=== PATIENT | female | born 1970 | race Caucasian/White ===

== ENCOUNTER 2018-05-05 16:31 | Outpatient (CLI) | payer OTHER ==
[2018-05-05 16:57] LABS: Hemoglobin 15.2 g/dL (12.0-16.0); Mean Corpuscular HGB CONC 34.9 g/dL (32.0-36.0); Mean Corpuscular Hemoglobin 33.2 pg (27.0-31.0); Mean Corpuscular Volume 95.1 fL (78.0-98.0); Mean Platelet Volume 7.9 fL (7.4-10.4); Platelet Count 279 thou/uL (130-400); RBC Distribution Width 12.1 % (11.5-14.5); Red Blood Cell (RBC) Count 4.58 mill/uL (4.20-5.40); White Blood Cell (WBC) Count 8.7 thou/uL (4.8-10.8)
[2018-05-05 17:04] LABS: INR-International Normal Ratio 0.9; PTT 26.4 SEC (22.9-36.1); Prothrombin Time 12.5 SEC (12.0-14.7)
[2018-05-05 17:15] LABS: Anion Gap 9 mmol/L (10-20); BUN (Urea Nitrogen) 14 mg/dL (7.0-18.7); Calc. Creatinine Clearance 0 mL/min (70-130); Calcium 9.6 mg/dL (7.8-10.44); Carbon Dioxide 31 mmol/L (22-29); Chloride 102 mmol/L (98-107); Estimated GFR-MDRD 68; Glucose 98 mg/dL (70-105); Potassium 3.4 mmol/L (3.5-5.1); Sodium 139 mmol/L (136-145)
--- NOTE | 2018-05-06 17:44 | EKG ---
Test Reason : Blood Pressure : / mmHG Vent. Rate : 086 BPM Atrial Rate : 086 BPM P-R Int : 128 ms QRS Dur : 098 ms QT Int : 364 ms P-R-T Axes : 067 082 036 degrees QTc Int : 435 ms Normal sinus rhythm Normal ECG No previous ECGs available Confirmed by DR. Gabbie CLEANING ([id number]) on 05/06/2018 5:43:49 PM Referred By: BRITTANY Confirmed By:DR. Gabbie CLEANING
== END 2018-05-05 16:32 | disposition home or self-care (01) ==
LOC: LABBT 16:31
PROVIDERS: ATTEND Surgery
DX: Z01.818 Encounter for other preprocedural examination (principal); M51.16 Intervertebral disc disorders with radiculopathy, lumbar region
CPT/HCPCS: 80048; 85027; 85610; 85730; 93005; 93010

== ENCOUNTER 2018-05-06 05:54 | Day surgery (SDC) | payer OTHER ==
[2018-05-05 16:43] VITALS: BMI 29.9
[2018-05-06] MEDS ORDERED: CEFAZOLIN/Water 2 GM/20 ML SYRINGE ONE (06:27)
[2018-05-06] MEDS ORDERED: Sodium Chloride 0.9% 10 ML ONE (06:41)
[2018-05-06] MEDS ORDERED: Bacitracin Zinc Ointment 30 gm TUBE ONE (06:41)
[2018-05-06] MEDS ORDERED: Thrombin 5000 UNITS/5 ML VIAL ONE (06:41)
[2018-05-06] MEDS ORDERED: Midazolam HCl 2 mg/2 ml Vial ONE (07:13)
[2018-05-06] MEDS ORDERED: Fentanyl 100 MCG/2 ML VIAL ONE ×3 (07:15→10:14)
[2018-05-06] MEDS ORDERED: traMADol HCl 50 MG TAB ONE (11:13)
--- NOTE | 2018-05-06 11:23 | OP ---
OR: #12. WOUND TYPE: Type 1 wound. SURGEON: Michael Bentley M.D. INTEGRATION PROJECT MANAGER: Dakotah Montoya PA-C. PREPROCEDURE DIAGNOSIS: Left L5-S1 disk extrusion with left S1 radiculopathy. POSTPROCEDURE DIAGNOSIS: Left L5-S1 disk extrusion with left S1 radiculopathy. PROCEDURE: 1. Left L5-S1 hemilaminotomy, foraminotomy, and diskectomy. 2. Use of operative microscope for microdissection. DESCRIPTION OF PROCEDURE: After informed consent was obtained from the patient, the patient brought to OR #12. Proper patient pause identification was carried out. She was placed in excellent general endotracheal anesthesia and positioned prone on the OR table. All appropriate points were padded. We identified a midline linear price to allow for approach to the L5-S1 segment on the left side. Thi s region was sterilely cleansed, prepared, and draped. Proper patient pause and identification was c arried out. The wound was then opened with a combination of sharp, monopolar and blunt dissection, a nd proceeded to expose L5, left S1 hemilamina. Localization film confirmed our area of interest. We then performed a left L5-S1 hemilaminotomy and foraminotomy. The microscope was brought in for micr odissection. We identified the common dural tube and the traversing left S1 nerve root. Working ove r the shoulder in the axilla of the left S1 root. We removed multiple disk fragments. There was nate e disk material as well and the parent disk space consistent with soft fragments and these were remov ed as well. We had excellent decompression of the left S1 nerve root and assured freedom as well of the left L5 nerve root. Copious irrigation occurred throughout as did maximizing hemostasis. The wo und was then closed in anatomic layers following sprinkle vancomycin powder. The patient then emerge d from anesthesia.
== END 2018-05-06 13:15 | disposition home or self-care (01) ==
LOC: SDC 05:54
PROVIDERS: ATTEND Surgery
PROC: 01NB0ZZ Release Lumbar Nerve, Open Approach (ICD-10-PCS; principal; 2018-05-06)
DX: M51.17 Intervertebral disc disorders with radiculopathy, lumbosacral region (principal); E07.9 Disorder of thyroid, unspecified; G43.909 Migraine, unspecified, not intractable, without status migrainosus; Z79.899 Other long term (current) drug therapy; Z88.2 Allergy status to sulfonamides
CPT/HCPCS: 76001; 96374; A4216; J0131; J2250; J3010; J3370; J3490

== ENCOUNTER 2018-05-20 15:42 | Emergency (ER) | payer OTHER ==
[2018-05-20 16:10] LABS: #Eosinphils 0.1 thou/uL (0.0-0.7); #Lymphocytes 0.7 thou/uL (1.20-3.40); #Monocytes 0.7 thou/uL (0.11-0.59); #Neutrophils 6.5 thou/uL (1.40-6.50); %Basophils 0.3 % (0.0-1.0); %Eosinophils 0.7 % (0.0-10.0); %Lymphocytes 8.3 % (21.0-51.0); %Monocytes 9.1 % (0.0-10.0); %Neutrophils 81.6 % (42.0-75.0); Mean Corpuscular HGB CONC 34.5 g/dL (32.0-36.0); Mean Corpuscular Hemoglobin 32.2 pg (27.0-31.0); Mean Corpuscular Volume 93.5 fL (78.0-98.0); Mean Platelet Volume 7.2 fL (7.4-10.4); Platelet Count 310 thou/uL (130-400); Red Blood Cell (RBC) Count 4.35 mill/uL (4.20-5.40)
[2018-05-20] MEDS ORDERED: Ibuprofen 800 MG TAB ONE (16:22)
[2018-05-20 16:30] LABS: ALT (SGPT) 106 U/L (8-55); AST (SGOT) 97 U/L (5-34); Albumin 3.3 g/dL (3.5-5.0); Alkaline Phosphatase 151 U/L (40-150); Anion Gap 11 mmol/L (10-20); BUN (Urea Nitrogen) 9 mg/dL (7.0-18.7); Bilirubin, Total 1.1 mg/dL (0.2-1.2); Calc. Creatinine Clearance 0 mL/min (70-130); Calcium 8.5 mg/dL (7.8-10.44); Carbon Dioxide 24 mmol/L (22-29); Chloride 102 mmol/L (98-107); Estimated GFR-MDRD 79; Globulin 3.4 g/dL (2.4-3.5); Glucose 122 mg/dL (70-105); Potassium 3.1 mmol/L (3.5-5.1); Protein, Total 6.7 g/dL (6.0-8.3); Sodium 134 mmol/L (136-145)
--- NOTE | 2018-05-20 16:44 | RAD ---
CHEST ONE VIEW: 05/20/18 HISTORY: Fever. COMPARISON: None. FINDINGS: Normal cardiac silhouette. Pulmonary vessels and hilum are normal. No consolidation or mass. No pneum othorax or osseous abnormalities. IMPRESSION: No acute cardiopulmonary process. POS: [facility]
[2018-05-20] MEDS ORDERED: Morphine 4 MG/ML VIAL ONE (17:41)
[2018-05-20] MEDS ORDERED: Ondansetron HCl/PF 4 MG/2 ML Vial ONE (17:41)
[2018-05-20 17:52] LABS: Bilirubin Negative (Negative); Blood, Urine Negative (Negative); Clarity CLEAR (Clear); Glucose, Urine (Dipstick) Negative (Negative); Leukocyte Negative (Negative); Nitrite Negative (Negative); Protein, Urine (Dipstick) Negative (Neg-Trace); Specific Gravity, Urine 1.007 (1.002-1.036); pH, Urine 7.5 (5.0-9.0)
== END 2018-05-20 18:34 | disposition home or self-care (01) ==
LOC: ERS 15:42
DX: R50.9 Fever, unspecified (principal); R00.0 Tachycardia, unspecified; Z79.899 Other long term (current) drug therapy
CPT/HCPCS: 71045; 80053; 81003; 83605; 85025; 87040; 87077; 87149; 87186; 96361; 96374; 96375; J2270; J2405

== ENCOUNTER 2018-05-26 20:16 | Inpatient (IN) | payer OTHER ==
[~2018-05-26 20:16] MED LIST: ISOVUE-370 76%-LOCM 1 ML ONE
[2018-05-26] MEDS ORDERED: Ibuprofen 800 MG TAB ONE (21:12)
[2018-05-26 21:15] LABS: #Basophils 0.1 thou/uL (0.0-0.2); #Eosinphils 0.1 thou/uL (0.0-0.7); #Lymphocytes 1.6 thou/uL (1.20-3.40); #Monocytes 0.7 thou/uL (0.11-0.59); #Neutrophils 9.7 thou/uL (1.40-6.50); %Basophils 0.5 % (0.0-1.0); %Eosinophils 0.7 % (0.0-10.0); %Lymphocytes 12.8 % (21.0-51.0); %Monocytes 5.6 % (0.0-10.0); %Neutrophils 80.3 % (42.0-75.0); Hemoglobin 15.4 g/dL (12.0-16.0); Mean Corpuscular Hemoglobin 30.4 pg (27.0-31.0); Mean Platelet Volume 6.8 fL (7.4-10.4); Platelet Count 491 thou/uL (130-400); RBC Distribution Width 12.3 % (11.5-14.5); Red Blood Cell (RBC) Count 5.07 mill/uL (4.20-5.40)
--- NOTE | 2018-05-26 21:23 | RAD ---
CHEST ONE VIEW: HISTORY: Bacteremia. COMPARISON: 05/20/2018 FINDINGS: Normal cardiac silhouette. The pulmonary vessels are within normal limits. The costophrenic angles are clear. No masses or consolidation. Chronic changes of the lung parenchyma. Subsegmental atelec tasis in the right mid lung. No pneumothorax or osseous abnormalities. IMPRESSION: Chronic changes in the lung parenchyma. No evidence of consolidation. POS: [facility]
[2018-05-26 21:37] LABS: ALT (SGPT) 245 U/L (8-55); AST (SGOT) 138 U/L (5-34); Albumin 4.1 g/dL (3.5-5.0); Alkaline Phosphatase 188 U/L (40-150); Anion Gap 13 mmol/L (10-20); BUN (Urea Nitrogen) 14 mg/dL (7.0-18.7); Bilirubin, Total 0.8 mg/dL (0.2-1.2); Calc. Creatinine Clearance 0 mL/min (70-130); Calcium 9.5 mg/dL (7.8-10.44); Carbon Dioxide 29 mmol/L (22-29); Chloride 100 mmol/L (98-107); Estimated GFR-MDRD 64; Globulin 4.8 g/dL (2.4-3.5); Glucose 100 mg/dL (70-105); Potassium 3.5 mmol/L (3.5-5.1); Protein, Total 8.9 g/dL (6.0-8.3); Sodium 138 mmol/L (136-145)
--- NOTE | 2018-05-26 22:23 | ULT ---
BILATERAL LOWER LOBES VENOUS DOPPLER DUPLEX ULTRASOUND: CPT: 46253 ICD-10-PCS: [id number] INDICATIONS: Pain. TECHNIQUE: Color flow Doppler, spectral waveform analysis of pulsed Doppler, and cruz-scale imaging with emilia lupe and augmentation were used to evaluate the bilateral common femoral, femoral, popliteal, posteri or tibial, and superficial femoral veins, and the proximal portions of the profunda femoral and great er saphenous veins. FINDINGS: There is appropriate compressibility and flow within the imaged deep venous system of each visualized lower extremity. IMPRESSION: No deep venous thrombosis of the imaged bilateral lower extremities. POS: [facility]
[2018-05-26 23:17] LABS: Bilirubin Negative (Negative); Blood, Urine Negative (Negative); Clarity CLEAR (Clear); Glucose, Urine (Dipstick) Negative (Negative); Leukocyte Negative (Negative); Nitrite Negative (Negative); Protein, Urine (Dipstick) Negative (Neg-Trace); pH, Urine 7.5 (5.0-9.0)
[2018-05-26] MEDS ORDERED: Morphine 4 MG/ML VIAL ONE (23:20)
[2018-05-26] MEDS ORDERED: Acetaminophen 325 MG TAB ONE (23:43)
[2018-05-26] MEDS ORDERED: Vancomycin HCl 1.25 GM in Sodium Chloride 0.9% 250 ML 250 ML IVPB SCH (23:45)
[2018-05-27] MEDS ORDERED: Acetaminophen 325 MG TAB PO PRN
--- NOTE | 2018-05-27 00:16 | CT ---
CT ABDOMEN AND PELVIS NONCONTRAST ENHANCED: CT ABDOMEN AND PELVIS CONTRAST ENHANCED: INDICATIONS: Prior spine surgery with fever. FINDINGS: There is an abnormal fluid and air collection of the posterior paraspinous soft tissues, consistent w ith abscess, which is located at the posteromedial aspect of the posterior left paraspinous musculatu re. It overlies the spinous process of L4 and is multi-component in morphology, spanning an AP dimen lupe of 2.8 cm and a craniocaudal, obliquely-oriented dimension of approximately 2.6 cm. There is no retroperitoneal gas of significance visualized. Prior cholecystectomy. Punctate hypoattenuation of the hepatic parenchyma and of left kidney, too sm all to further characterize. Borderline enlargement of the spleen, of indeterminate etiology. Corre late clinically. Bibasilar atelectasis, dependent. The contents of the vertebral canal are not reliably evaluated on the basis of this exam; therefore, entities such as intraspinal dissemination of infection are not excluded. IMPRESSION: Evidence of a fluid and air collection of the posterior paraspinous region, indicative of abscess, gi angie the clinical setting. Alternatively seroma, or hematoma are considerations. This is amenable to p ercutaneous sampling as necessary. Case discussed with Michael Bentley MD. POS: [facility]
[2018-05-27] MEDS: MEROPENEM 1 GM/50 ML 1 GM in Premix Bag 1 BAG IVPB SCH ×3 (01:18→18:18)
[2018-05-27] MEDS: Sodium Chloride 0.9% 1,000 ML IV SCH ×3 (01:18→22:35)
[2018-05-27 01:55] VITALS: BMI 30.9
[2018-05-27 05:37] LABS: #Eosinphils 0.1 thou/uL (0.0-0.7); #Lymphocytes 1.8 thou/uL (1.20-3.40); #Neutrophils 7.4 thou/uL (1.40-6.50); %Basophils 0.5 % (0.0-1.0); %Eosinophils 1.2 % (0.0-10.0); %Lymphocytes 17.4 % (21.0-51.0); %Monocytes 9.5 % (0.0-10.0); %Neutrophils 71.5 % (42.0-75.0); Hemoglobin 11.8 g/dL (12.0-16.0); Mean Corpuscular HGB CONC 33.5 g/dL (32.0-36.0); Mean Corpuscular Hemoglobin 31.5 pg (27.0-31.0); Mean Corpuscular Volume 93.8 fL (78.0-98.0); Mean Platelet Volume 6.7 fL (7.4-10.4); Platelet Count 370 thou/uL (130-400); RBC Distribution Width 12.1 % (11.5-14.5); Red Blood Cell (RBC) Count 3.76 mill/uL (4.20-5.40); White Blood Cell (WBC) Count 10.4 thou/uL (4.8-10.8)
[2018-05-27 05:47] LABS: Anion Gap 10 mmol/L (10-20); BUN (Urea Nitrogen) 12 mg/dL (7.0-18.7); Calc. Creatinine Clearance 113 mL/min (70-130); Calcium 8.5 mg/dL (7.8-10.44); Carbon Dioxide 23 mmol/L (22-29); Chloride 108 mmol/L (98-107); Estimated GFR-MDRD 75; Glucose 95 mg/dL (70-105); Potassium 3.8 mmol/L (3.5-5.1); Sodium 137 mmol/L (136-145)
[2018-05-27] MEDS ORDERED: Enoxaparin Sodium 40 MG/0.4 ML SYRINGE SC SCH (09:00)
[2018-05-27] MEDS ORDERED: Vancomycin HCl 1 GM in Premix Bag 1 BAG IVPB SCH (09:00)
[2018-05-27] MEDS ORDERED: Levothyroxine Sodium 125 MCG TAB PO SCH (09:00)
[2018-05-27] MEDS: Zonisamide 100 MG CAP PO SCH ×2 (09:05→20:51)
--- NOTE | 2018-05-27 09:45 | PRG ---
DATE OF SERVICE: 05/27/2018 SUBJECTIVE: Ms. Ambriz is 3 weeks out from left L5-S1 hemilaminotomy, foraminotomy, and diskectomy . Initially postoperative, her leg pain was resolved following the diskectomy. The procedure was un complicated. She went home the same day. Approximately a week out from surgery, she began to become febrile. Her arlette were removed and she developed superficial dehiscence of her wound. This bega n to improve; however, the patient began to have despite placement of prophylactic antibiotics, fluct uating fevers. Blood cultures captured two separate growths of Proteus mirabilis. This was confirme d on 05/25/2018. We informed the patient that we would like her to go to the emergency room, which she did yesterday. White count was elevated at 12 and it is now down to 10.4 since initiation of antibiotics. Her acute phase reactant consistent with thrombocytosis with elevated platelet coun t is resolved to 370. CRP is elevated as well as sed rate at 9.39 and 33 respectively. The urine is clear for evidence of infection. I did ask her to do CT scan of the abdomen and pelvis, and the pat ient does have splenomegaly. There is a seroma versus abscess in the operative bed. I discussed the case with Dr. Guerrero who offered a needle aspiration of the small abscess, but I have discussed wit h the patient and her that I would be in favor of bring her back to the operating room for ex ploration of her wound and subsequent cultures. We will continue her on antibiotics. I should note she has elevated LFTs and alkaline phosphatase that coupled with the splenomegaly is a bit puzzling t o me, but I think our medical colleagues will be able to put this together. I should note she has a mixed connective tissue disease as well, which may be affecting the immune system. Nevertheless, we are going to plan to bring her back today. Continue her on antibiotics and Dr. Mckenzie will assist in regards to plans for antimicrobial therapy in the future.
--- NOTE | 2018-05-27 09:58 | HP ---
DATE OF ADMISSION: 05/26/2018 PRIMARY CARE PHYSICIAN: Dr. Kendrick Burton. CODE STATUS: FULL CODE. TIME OF EVALUATION: 11:00 p.m. CHIEF COMPLAINT: Patient was recovered from abnormal blood cultures. HISTORY OF PRESENT ILLNESS: This is a 48-year-old female patient with past medical history of recent lumbar laminectomy done and hypothyroidism, was called by Dr. Bentley, this is patient's neurosurgeon , because there was a finding of two positive blood cultures for Proteus. The patient had a laminect gustavo done in 05/06/2018, has been doing well for a few days. After that, the patient started having f cathryn and severe back pain with severe weakness in the left lower extremity, the symptoms gradually g etting worse, not improving, patient had fever, chills, and nausea. REVIEW OF SYSTEMS: Constitutional: Patient had fever, chills, generalized weakness. Respiratory: No cough, sputum production, shortness of breath. Cardiovascular: No chest pain, palpitation. Kimberly rointestinal: No nausea, no vomiting, diarrhea or abdominal pain. 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 Genitourinary: No burning on urination. Extremities: No leg swelling. All other systems were reviewed and are negative except for the find ings mentioned above. PAST MEDICAL HISTORY: As mentioned in the HPI. PAST SURGICAL HISTORY: Patient has laminectomy on 05/06/2018 in the lumbar area, tubal ligation, his tory of cholecystectomy, right bunionectomy. PSYCHIATRIC HISTORY: No previous psychiatric history. SOCIAL HISTORY: No alcohol, no drugs, or smoking history. FAMILY HISTORY: Patient reportedly mother with heart problem, Alzheimer's. Father with heart proble ms, lung cancer. DRUG ALLERGIES: SULFA. REPORTED MEDICATIONS: Synthroid, Sinemet, Keflex. PHYSICAL EXAMINATION: VITAL SIGNS: On presentation, blood pressure 133/86, heart rate 82, respiratory rate was 16, tempera ture 100.3, pain was 8, oxygen saturation was 97 on room air. GENERAL APPEARANCE: The patient is alert and oriented, in acute distress due to lower back pain. HEENT: Eye, normal conjunctivae. Moist oral mucosa, anicteric. NECK: No JVD. RESPIRATORY: Bilateral air entry. No rales, no wheezing. Symmetric expansion. CARDIOVASCULAR: Normal rate and regular rhythm. No murmurs, no gallop. No edema. ABDOMEN: Soft, normal bowel sounds. MUSCULOSKELETAL: Baseline range of motion and strength. No tenderness. SKIN: Warm and intact. No pallor, no rash, no redness. Peripheral pulses are present. Capillary r efill seems to be intact. NEUROLOGIC: Baseline sensory. No evidence of any new focal weakness. The patient does have weaknes s in the lower extremities. She reported she surgery. Also, patient reported pain when mobili zing the lower extremities, patient has baseline speech. Cranial nerves seem to be intact. PSYCHIATRIC: The patient is in good mood. No anxiety, oriented, optimal judgment. IMAGING DATA: Abdomen and pelvis CT showed evidence of fluid and air collection in the posterior par aspinous region compatible with abscess. Given the clinical setting, this is amenable to percutaneou s sampling as necessary. Chest x-ray was reviewed. The patient has chronic changes in the lung pare nchyma. No evidence of consolidation. Venogram was done. The patient has no deep venous thrombosis pf the imaged bilateral lower extremities. LABORATORY DATA: Reviewed. The patient has white count 12, hemoglobin 15.4, MCV 95, platelet count 491. Sodium 138, potassium 3.5, chloride 100, carbon dioxide 29, anion gap 13, BUN 14, creatinine 0. 9, GFR is 64, glucose 100. Lactic acid 1.3, calcium 9.5, total bilirubin 0.8, AST 138, ALT of 245, a lkaline phosphatase 188. C-reactive protein 9.39. Serum total protein 8.9, albumin 4.1, globulin 4. 8, albumin globulin ratio 0.9. UA was negative. ASSESSMENT AND PLAN: The patient will be placed in the hospital with following medical problems: 1. Sepsis. Patient has tachycardia, fever, source is lumbar paraspinous region abscess, secondary t o previous surgery or infection. Patient was placed on broad-spectrum antibiotics, is transfe rred the patient to the hospital. He will see the patient in the morning, further treatment as per N eurosurgery. We will follow cultures. Adjust treatment as needed. 2. Paraspinal abscess, treatment as above. 3. Hypothyroidism. Continue hormone replacement. 4. Deep venous thrombosis prophylaxis. RISK ASSESSMENT: Patient is at high risk of complication given neurological symptoms.
[2018-05-27] MEDS: Vancomycin HCl 1.25 GM in Sodium Chloride 0.9% 250 ML 250 ML IVPB SCH ×2 (10:05→20:51)
--- NOTE | 2018-05-27 11:26 | PDOC.PN ---
- Subjective Encounter Start Date: 05/27/18 Encounter Start Time: 09:45 Subjective: has pain over lower back -: no sob or fever now - Objective Resuscitation Status: Resuscitation Status FULL:Full Resuscitation MAR Reviewed: Yes Vital Signs & Weight: Vital Signs (12 hours) Temp Pulse Resp BP Pulse Ox 05/27/18 08:59 95 05/27/18 07:19 97.6 F 73 16 113/76 95 05/27/18 04:00 98.0 F 78 18 113/76 97 05/26/18 23:55 99.6 F 97 18 128/81 95 Weight Weight 186 lb 3.2 oz I&O: 05/26/18 05/27/18 05/28/18 06:59 06:59 06:59 Intake Total 600 Output Total 1100 Balance -500 Result Diagrams: 05/27/18 04:33 05/27/18 04:33 Phys Exam - Physical Examination HEENT: PERRLA, moist MMs Neck: no JVD, supple Respiratory: no wheezing, no rales Cardiovascular: RRR, no significant murmur Gastrointestinal: soft, non-tender, positive bowel sounds Musculoskeletal: pulses present non healing wound over previous laminectomy site Neurological: non-focal, moves all 4 limbs Psychiatric: normal affect, A&O x 3 Dx/Plan (1) Epidural abscess Code(s): G06.2 - EXTRADURAL AND SUBDURAL ABSCESS, UNSPECIFIED Status: Acute Comment: L4 area (2) Sepsis Code(s): A41.9 - SEPSIS, UNSPECIFIED ORGANISM Status: Acute Comment: sec to proteus mirabilis (3) Bacteremia Code(s): R78.81 - BACTEREMIA Status: Acute Comment: proteus mirabilis (4) Elevated LFTs Code(s): R94.5 - ABNORMAL RESULTS OF LIVER FUNCTION STUDIES Status: Acute (5) Chronic anemia Code(s): D64.9 - ANEMIA, UNSPECIFIED Status: Chronic - Plan elevated lft's sec to sepis likely -: will f/u trend -: is on vanc and meropenem -: is going to OR for debridement this afternoon -: blood cs here 2/2 prelim no growth * . Review of Systems - Medications/Allergies Allergies/Adverse Reactions: Allergies Allergy/AdvReac Type Severity Reaction Status Date / Time Sulfa (Sulfonamide Allergy Verified 05/05/18 16:43 Antibiotics) Medications: Current Medications Acetaminophen (Tylenol) 650 mg PO Q4H PRN PRN Reason: Headache/Fever or Pain Meropenem 1 gm/ Device 50 mls @ 100 mls/hr IVPB 0100,0900,1700 [facility] Last Admin: 05/27/18 09:04 Dose: 50 mls Sodium Chloride (Normal Saline 0.9%) 1,000 mls @ 100 mls/hr IV .Q10H [facility] Last Admin: 05/27/18 01:18 Dose: 1,000 mls Vancomycin HCl 1.25 gm/ Sodium (Chloride) 250 mls @ 166.667 mls/hr IVPB Q12HR [facility] Last Admin: 05/27/18 10:05 Dose: 250 mls Levothyroxine Sodium (Synthroid) 125 mcg PO QAM [facility] Last Admin: 05/27/18 09:05 Dose: 125 mcg Pantoprazole Sodium (Protonix) 40 mg PO DAILY [facility] Last Admin: 05/27/18 09:05 Dose: 40 mg Sodium Chloride (Flush - Normal Saline) 10 ml IVF Q12HR [facility] Last Admin: 05/27/18 09:08 Dose: Not Given Sodium Chloride (Flush - Normal Saline) 10 ml IVF PRN PRN PRN Reason: Saline Flush Zonisamide (Zonegran) 100 mg PO BID [facility] Last Admin: 05/27/18 09:05 Dose: 100 mg
[2018-05-27] MEDS ORDERED: Thrombin 5000 UNITS/5 ML VIAL ONE (13:05)
[2018-05-27] MEDS ORDERED: Sodium Chloride 0.9% 10 ML ONE ×2 (13:05→13:15)
[2018-05-27] MEDS ORDERED: Bacitracin Zinc Ointment 30 gm TUBE ONE (13:05)
[2018-05-27] MEDS ORDERED: Dexamethasone 20 MG/5 ML VIAL ONE (13:12)
[2018-05-27] MEDS ORDERED: Ondansetron HCl/PF 4 MG/2 ML Vial ONE (13:12)
[2018-05-27] MEDS ORDERED: PROPOFOL 200 MG/20 ML VIAL ONE (13:12)
[2018-05-27] MEDS ORDERED: PHENYLEPHRINE-NS 100 MCG/ML 10 ML SYRINGE ONE (13:12)
[2018-05-27] MEDS ORDERED: Glycopyrrolate 0.2 MG/ML 5 ML SYRINGE ONE (13:12)
[2018-05-27] MEDS ORDERED: Metoclopramide HCl 10 MG/2 ML VIAL ONE (13:12)
[2018-05-27] MEDS ORDERED: Ketorolac Tromethamine 30 MG/ML VIAL ONE (13:12)
[2018-05-27] MEDS ORDERED: Lidocaine 1% PF 5 ML VIAL ONE (13:12)
[2018-05-27] MEDS ORDERED: Promethazine HCl 25 MG/ML VIAL ONE (13:14)
[2018-05-27] MEDS ORDERED: Propofol 500 MG/50 ML VIAL ONE (13:14)
[2018-05-27] MEDS ORDERED: Fentanyl 100 MCG/2 ML VIAL ONE ×3 (13:24→15:59)
[2018-05-27] MEDS ORDERED: Morphine Sulfate 2 MG/ML SYRINGE SLOW IVP PRN (14:46)
[2018-05-27] MEDS ORDERED: Ondansetron HCl/PF 4 MG/2 ML Vial IVP PRN (14:46)
[2018-05-27] MEDS ORDERED: Meperidine HCl/PF 25 MG/ML VIAL SLOW IVP PRN (14:46)
[2018-05-27] MEDS ORDERED: HYDROmorphone 2 MG/ML VIAL SLOW IVP PRN (14:46)
[2018-05-27] MEDS ORDERED: Promethazine HCl 25 MG/ML VIAL SLOW IVP PRN (14:46)
[2018-05-27] MEDS ORDERED: Promethazine HCl 25 MG/ML VIAL IM PRN (14:46)
[2018-05-27] MEDS ORDERED: traMADol HCl 50 MG TAB PO PRN (15:33)
[2018-05-27] MEDS ORDERED: Ondansetron HCl/PF 4 MG/2 ML Vial SLOW IVP PRN (16:48)
[2018-05-27] MEDS: HYDROcodone/Acetaminophen 5/325 mg Tablet PO PRN ×2 (18:27→22:34)
--- NOTE | 2018-05-27 18:50 | OP ---
OPERATING ROOM: 11. WOUND TYPE: Type 4 wound, dirty and infected. SURGEON: Michael Bentley M.D. MANAGER STARS: Dakotah Montoya PA-C. PREPROCEDURE DIAGNOSIS: Concern of postoperative infection. POSTPROCEDURE DIAGNOSIS: Concern of postoperative infection. PROCEDURE: Reopening of left L5-S1 hemilaminotomy diskectomy wound with exploration, intraoperative cultures and wash out. DESCRIPTION OF PROCEDURE: After informed consent was obtained from the patient, the patient brought to OR 11. Proper patient pause identification was carried out. She was placed in excellent general endotracheal anesthesia and positioned prone on the OR table. The prior wound was identified. There were regions of fibrinous exudate and erythema around the wound. The portions of the wound were stephen sed. There was no active drainage. The wound region was sterilely cleansed, prepared and draped and proper patient pause identification was carried out. The wound was then opened with sharp dissectio n and liquified hematoma was immediately available for evacuation and culture. This was and I then took the dissection deeper into the subfascial region and did not identify any evidence of purul ence neither superficial nor deep. Copious irrigation occurred with 2 liters of bacitracin irrigatio n and the wound was then closed in anatomic layers following the sprinkling of vancomycin powder. Th e patient then emerged from anesthesia.
[2018-05-27] MEDS: Morphine 2 MG/ML SYRINGE SLOW IVP PRN (20:45)
[2018-05-27] MEDS: tiZANidine HCl 4 MG TAB PO SCH (20:51)
[2018-05-28] MEDS: MEROPENEM 1 GM/50 ML 1 GM in Premix Bag 1 BAG IVPB SCH ×3 (00:10→17:12)
[2018-05-28] MEDS: HYDROcodone/Acetaminophen 5/325 mg Tablet PO PRN ×3 (02:39→20:02)
[2018-05-28] MEDS: Levothyroxine Sodium 125 MCG TAB PO SCH (05:19)
[2018-05-28 08:41] LABS: Vancomycin, Trough 13.4 ug/mL
[2018-05-28] MEDS: Zonisamide 100 MG CAP PO SCH ×2 (08:46→20:02)
[2018-05-28] MEDS: tiZANidine HCl 4 MG TAB PO SCH ×3 (08:46→20:02)
[2018-05-28] MEDS: Vancomycin HCl 1.5 GM in Sodium Chloride 0.9% 250 ML 300 ML IVPB SCH ×2 (09:32→20:02)
--- NOTE | 2018-05-28 11:46 | PDOC.PN ---
- Subjective Encounter Start Date: 05/28/18 Encounter Start Time: 11:40 - Objective Resuscitation Status: Resuscitation Status FULL:Full Resuscitation MAR Reviewed: Yes Vital Signs & Weight: Vital Signs (12 hours) Temp Pulse Resp BP Pulse Ox 05/28/18 08:46 95 05/28/18 08:00 98.2 F 72 16 111/69 95 05/28/18 05:20 98.1 F 67 16 97/61 94 L 05/28/18 00:12 98.3 F 69 20 94/63 92 L Weight Weight 186 lb 3.2 oz I&O: 05/27/18 05/28/18 05/29/18 06:59 06:59 06:59 Intake Total 600 3435 Output Total 1100 3700 Balance -500 -265 Result Diagrams: 05/27/18 04:33 05/27/18 04:33 Phys Exam - Physical Examination HEENT: PERRLA, moist MMs Neck: no JVD, supple Respiratory: no wheezing, no rales Cardiovascular: RRR, no significant murmur Gastrointestinal: soft, non-tender, positive bowel sounds Musculoskeletal: no edema, pulses present Neurological: non-focal, moves all 4 limbs Dx/Plan (1) Epidural abscess Code(s): G06.2 - EXTRADURAL AND SUBDURAL ABSCESS, UNSPECIFIED Status: Acute Comment: s/p wash out of L5-S1 area done 05/28/2018 (2) Sepsis Code(s): A41.9 - SEPSIS, UNSPECIFIED ORGANISM Status: Acute Comment: sec to proteus mirabilis (3) Bacteremia Code(s): R78.81 - BACTEREMIA Status: Acute Comment: proteus mirabilis (4) Elevated LFTs Code(s): R94.5 - ABNORMAL RESULTS OF LIVER FUNCTION STUDIES Status: Acute (5) Chronic anemia Code(s): D64.9 - ANEMIA, UNSPECIFIED Status: Chronic - Plan is on meropenem and vanc -: await full culture results -: had wash out of L5-S1 area done yesterday with not much of purulence seen -: urine cs is -ve, check lft's in am -: on ultram, zanaflex prn, synthroid and zonisamide * . Review of Systems - Medications/Allergies Allergies/Adverse Reactions: Allergies Allergy/AdvReac Type Severity Reaction Status Date / Time Sulfa (Sulfonamide Allergy Verified 05/05/18 16:43 Antibiotics) Medications: Current Medications Acetaminophen (Tylenol) 650 mg PO Q4H PRN PRN Reason: Headache/Fever or Pain Hydrocodone Bitart/Acetaminophen ([place] 5/325) 1 tab PO Q4H PRN PRN Reason: Moderate Pain (4-6) Last Admin: 05/28/18 02:39 Dose: 1 tab Meropenem 1 gm/ Device 50 mls @ 100 mls/hr IVPB 0100,0900,1700 [facility] Last Admin: 05/28/18 09:32 Dose: 50 mls Sodium Chloride (Normal Saline 0.9%) 1,000 mls @ 100 mls/hr IV .Q10H [facility] Last Admin: 05/27/18 22:35 Dose: 1,000 mls Vancomycin HCl 1.5 gm/ Sodium (Chloride) 300 mls @ 200 mls/hr IVPB 0900,2100 [facility] Last Admin: 05/28/18 09:32 Dose: 300 mls Levothyroxine Sodium (Synthroid) 125 mcg PO 0600 [facility] Last Admin: 05/28/18 05:19 Dose: 125 mcg Morphine Sulfate (Morphine) 2 mg SLOW IVP Q4H PRN PRN Reason: Severe Pain (7-10) Last Admin: 05/27/18 20:45 Dose: 2 mg Ondansetron HCl (Zofran) 4 mg SLOW IVP Q6H PRN PRN Reason: Nausea/Vomiting Pantoprazole Sodium (Protonix) 40 mg PO DAILY [facility] Last Admin: 05/28/18 08:46 Dose: 40 mg Sodium Chloride (Flush - Normal Saline) 10 ml IVF Q12HR [facility] Last Admin: 05/27/18 21:23 Dose: 10 ml Sodium Chloride (Flush - Normal Saline) 10 ml IVF PRN PRN PRN Reason: Saline Flush Tizanidine HCl (Zanaflex) 4 mg PO TID [facility] Last Admin: 05/28/18 08:46 Dose: 4 mg Tramadol HCl (Ultram) 50 mg PO Q6H PRN PRN Reason: Mild Pain (1-3) Zonisamide (Zonegran) 100 mg PO BID [facility] Last Admin: 05/28/18 08:46 Dose: 100 mg
[2018-05-28] MEDS: Sodium Chloride 0.9% 1,000 ML IV SCH (13:13)
--- NOTE | 2018-05-28 13:51 | PRG ---
DATE OF SERVICE: 05/28/2018 Ms. Ambriz is postoperative day 1 from wound exploration, intraoperative cultures and wash out. We did not find purulent material at the time of surgery, but did fine a hematoma. Certainly this may have housed bacteria. We are awaiting cultures. Currently, the Gram stain is negative and obviously shows white and red blood cells. Her blood cultures have again shown gram negative quin. Obviously, I suspect this is going to be Proteus. Her hemodynamics and vitals have been stable and she has bee n afebrile. She states she is certainly feeling better compared to before surgery and has had improv ement as well in her lower extremity pain. We will continue to monitor the cultures and tailor antib iotic therapy accordingly. I have also reached out to Dr. Mckenzie and he is evaluating the patient. F inally I should note we will arrange for outpatient GI follow up for her splenomegaly and elevated li rich function tests.
--- NOTE | 2018-05-28 20:46 | CON ---
DATE OF CONSULTATION: 05/28/2018 REASON FOR CONSULTATION: Postop infection, laminectomy site. HISTORY OF PRESENT ILLNESS: A 48-year-old who has no major medical history except for low back probl ems with sciatica status post laminectomy on 05/06/2018 with subsequent development of inflammatory c hanges with fever and bacteremia. The patient has been admitted, had surgical debridement. The area appeared to have mostly superficial inflammatory changes without purulence in the deep spaces. The patient currently is on broad-spectrum coverage. She is feeling better. No headaches, visual sy mptoms, sore throat, odynophagia, dysphagia. No cough, sputum production, or chest pain. Moderate b ack pain. No abdominal pain or diarrhea. No genitourinary symptoms. No other joint symptoms. No n eurological symptoms. PAST MEDICAL HISTORY: Low back pain with radiculopathy, status post laminectomy recently, prior chol ecystectomy, and bunionectomy. SOCIAL HISTORY: Never a smoker. FAMILY HISTORY: Coronary artery disease, Alzheimer's, lung cancer. ALLERGIES: SULFA DRUGS. CURRENT MEDICATIONS: Tylenol, Synthroid, meropenem, morphine, vancomycin. PHYSICAL EXAMINATION: VITAL SIGNS: She has been afebrile since admission. The latest temperature is 99.1, blood pressure 130/80, pulse 85, respirations 16, O2 sat 97%. SKIN: Shows the surgical site. No drains are in place at this time. No lymphadenopathy. HEENT: Normal. LUNGS: Clear to auscultation and percussion. No jugular vein distention. HEART: S1, S2 regular rate without murmurs. ABDOMEN: Soft, not distended. EXTREMITIES: No other joint inflammatory process noted. NEUROLOGIC: Nonfocal. LABORATORY DATA: White cell count 12,000, down to 10,400; hemoglobin 15; platelets 491 and 370; neut rophil percentage 80 and now 71. Chemistry: AST 138, ALT 245, alkaline phosphatase 188, albumin 4.1 , globulin 4.8. CRP was 9.39. Urinalysis was normal. Vancomycin trough 13.4. Microbiology with Pr oteus species most likely 2/2 sets of blood cultures, pending susceptibility studies. Cultures from the wound with rare mixed skin and enteric lew present. Final results are pending. Gram stain was negative. There is an abdomen and pelvis CT from 05/26/2018 with fluid and air collection in cellophane worker ior paraspinous region indicative of abscess. This appears to be the hematoma that was found during the surgical debridement. ASSESSMENT: Laminectomy with postoperative hematoma formation, probably superinfected and bacteremia associated with Proteus. Other pathogens not yet ruled out. The patient to continue on broad-spect rum coverage, eventual transition to a regimen targeting the full isolates from the blood and the inf ected site. The IV versus oral route to be decided by the susceptibility profile of the organisms or organism. Duration of therapy will be protracted assuming a deep space involvement, at least 4 week s.
[2018-05-29] MEDS: Sodium Chloride 0.9% 1,000 ML IV SCH ×3 (00:48→17:22)
[2018-05-29] MEDS: MEROPENEM 1 GM/50 ML 1 GM in Premix Bag 1 BAG IVPB SCH ×2 (00:50→08:42)
[2018-05-29] MEDS: HYDROcodone/Acetaminophen 5/325 mg Tablet PO PRN ×4 (00:55→14:45)
[2018-05-29] MEDS: Morphine 2 MG/ML SYRINGE SLOW IVP PRN (02:43)
[2018-05-29] MEDS: Levothyroxine Sodium 125 MCG TAB PO SCH (05:11)
[2018-05-29 05:50] LABS: ALT (SGPT) 72 U/L (8-55); AST (SGOT) 22 U/L (5-34); Albumin 2.8 g/dL (3.5-5.0); Alkaline Phosphatase 96 U/L (40-150); Anion Gap 7 mmol/L (10-20); BUN (Urea Nitrogen) 11 mg/dL (7.0-18.7); Bilirubin, Total 0.6 mg/dL (0.2-1.2); Calc. Creatinine Clearance 113 mL/min (70-130); Calcium 8.5 mg/dL (7.8-10.44); Carbon Dioxide 27 mmol/L (22-29); Chloride 107 mmol/L (98-107); Estimated GFR-MDRD 75; Glucose 87 mg/dL (70-105); Potassium 3.4 mmol/L (3.5-5.1); Protein, Total 5.8 g/dL (6.0-8.3); Sodium 138 mmol/L (136-145)
--- NOTE | 2018-05-29 08:27 | PRG ---
DATE OF SERVICE: 05/29/2018 Ms. Ambriz is postoperative day 2 from lumbar wound exploration and washout. Her cultures remain n egative in regards to the wound; however, in the blood we have captured Proteus mirabilis. She is on meropenem and vancomycin and has been afebrile with stable hemodynamics. She has had resolution in her left leg pain and has ambulated in the room and in the [place] yesterday. We will mobilize her more today. Her wound is healing satisfactorily with ecchymoses around the incision with no evidence of worrisome wound drainage. There has been scant bleeding on the dressing, but nothing active. Neurol ogically, she is intact. We are awaiting the final cultures and I anticipate dismissal perhaps later today based on Dr. Mckenzie's recommendation or tomorrow. We will obtain an ultrasound of the lower ex tremities today.
[2018-05-29] MEDS: tiZANidine HCl 4 MG TAB PO SCH ×2 (08:42→14:45)
[2018-05-29] MEDS: Zonisamide 100 MG CAP PO SCH (08:42)
[2018-05-29] MEDS: Vancomycin HCl 1.5 GM in Sodium Chloride 0.9% 250 ML 300 ML IVPB SCH (09:26)
--- NOTE | 2018-05-29 11:51 | ULT ---
BILATERAL LOWER EXTREMITY VENOUS DOPPLER ULTRASOUND: Date: 05/29/18 HISTORY: Immobility due to recent surgery, bilateral lower extremity edema. TECHNIQUE: Smith scale ultrasound with color flow and spectral Doppler imaging of the deep venous systems of the lower extremities was performed bilaterally. FINDINGS: There is good flow, compression, and augmentation noted in the common femoral, femoral, deep femoral, popliteal, posterior tibial, and greater saphenous veins on either side. IMPRESSION: No evidence of deep venous thrombosis in either lower extremity. POS: ADAL
--- NOTE | 2018-05-29 13:23 | PDOC.PN ---
- Subjective Encounter Start Date: 05/29/18 Encounter Start Time: 08:00 Subjective: is ambulating in hallway, pain is better -: no weakness in LE -: no abd pain or burning urination - Objective Resuscitation Status: Resuscitation Status FULL:Full Resuscitation MAR Reviewed: Yes Vital Signs & Weight: Vital Signs (12 hours) Temp Pulse Resp BP Pulse Ox 05/29/18 08:45 97 05/29/18 08:29 98.8 F 85 16 130/81 97 05/29/18 05:12 98.7 F 75 16 121/76 98 Weight Weight 186 lb 3.2 oz I&O: 05/28/18 05/29/18 05/30/18 06:59 06:59 06:59 Intake Total 3435 2850 1800 Output Total 3700 3000 Balance -265 -150 1800 Result Diagrams: 05/27/18 04:33 05/29/18 04:58 Phys Exam - Physical Examination HEENT: PERRLA, moist MMs Neck: no JVD, supple Respiratory: no wheezing, no rales Cardiovascular: RRR, no significant murmur Gastrointestinal: soft, non-tender, positive bowel sounds Musculoskeletal: no edema, pulses present Neurological: non-focal, moves all 4 limbs Psychiatric: normal affect, A&O x 3 Dx/Plan (1) Epidural abscess Code(s): G06.2 - EXTRADURAL AND SUBDURAL ABSCESS, UNSPECIFIED Status: Acute Comment: s/p wash out of L5-S1 area done 05/28/2018 (2) Sepsis Code(s): A41.9 - SEPSIS, UNSPECIFIED ORGANISM Status: Acute Comment: sec to proteus mirabilis (3) Bacteremia Code(s): R78.81 - BACTEREMIA Status: Acute Comment: proteus mirabilis (4) Elevated LFTs Code(s): R94.5 - ABNORMAL RESULTS OF LIVER FUNCTION STUDIES Status: Resolved (5) Chronic anemia Code(s): D64.9 - ANEMIA, UNSPECIFIED Status: Chronic - Plan cultures are pansensitive -: is on cipro per advice -: d/w , is amb in hallway -: dc plan per 's adv -: may dc iv fluids later this afternoon, encourage po intake * . Review of Systems - Medications/Allergies Allergies/Adverse Reactions: Allergies Allergy/AdvReac Type Severity Reaction Status Date / Time Sulfa (Sulfonamide Allergy Verified 05/05/18 16:43 Antibiotics) Medications: Current Medications Acetaminophen (Tylenol) 650 mg PO Q4H PRN PRN Reason: Headache/Fever or Pain Hydrocodone Bitart/Acetaminophen ([place] 5/325) 1 tab PO Q4H PRN PRN Reason: Moderate Pain (4-6) Last Admin: 05/29/18 09:26 Dose: 1 tab Ciprofloxacin (Cipro) 500 mg PO BID@0600,2000 [facility] Sodium Chloride (Normal Saline 0.9%) 1,000 mls @ 100 mls/hr IV .Q10H [facility] Last Admin: 05/29/18 02:43 Dose: 1,000 mls Levothyroxine Sodium (Synthroid) 125 mcg PO 0600 [facility] Last Admin: 05/29/18 05:11 Dose: 125 mcg Morphine Sulfate (Morphine) 2 mg SLOW IVP Q4H PRN PRN Reason: Severe Pain (7-10) Last Admin: 05/29/18 02:43 Dose: 2 mg Ondansetron HCl (Zofran) 4 mg SLOW IVP Q6H PRN PRN Reason: Nausea/Vomiting Pantoprazole Sodium (Protonix) 40 mg PO DAILY [facility] Last Admin: 05/29/18 08:42 Dose: 40 mg Sodium Chloride (Flush - Normal Saline) 10 ml IVF Q12HR [facility] Last Admin: 05/29/18 08:40 Dose: Not Given Sodium Chloride (Flush - Normal Saline) 10 ml IVF PRN PRN PRN Reason: Saline Flush Tizanidine HCl (Zanaflex) 4 mg PO TID [facility] Last Admin: 05/29/18 08:42 Dose: 4 mg Tramadol HCl (Ultram) 50 mg PO Q6H PRN PRN Reason: Mild Pain (1-3) Last Admin: 05/28/18 13:15 Dose: 50 mg Zonisamide (Zonegran) 100 mg PO BID [facility] Last Admin: 05/29/18 08:42 Dose: 100 mg
--- NOTE | 2018-05-29 16:51 | PRG ---
DATE OF SERVICE: 05/29/2018 SUBJECTIVE: Feeling better, little bit of drainage in the surgical site. No respiratory symptoms. No abdominal pain. Voiding without difficulty. Ate well today. OBJECTIVE: VITAL SIGNS: T-max 99.1, blood pressure 112/77. GENERAL: Awake, alert, oriented. HEENT: Ocular movements conjugate. NECK: Supple. LUNGS: Symmetric clear breath sounds. CARDIOVASCULAR: S1, S2, regular rate. ABDOMEN: Soft and not distended. LABORATORY DATA: White cell count 10.4. Sodium 138, creatinine 0.81, ALT down to 72. Urinalysis no rmal. Microbiology with Proteus mirabilis from two sets of blood cultures as well as from the wound site, broad susceptibility noted for the strain. ASSESSMENT: Laminectomy with postoperative hematoma, superinfected bacteremia secondary to Proteus w ith a very broad susceptibility profile. Switch to oral Cipro for 40 days and discharge planning.
[2018-05-29 17:20] VITALS: BP 122/83; TEMP 98.8
[2018-05-29] MEDS ORDERED: Cipro 250 MG TAB PO SCH (20:00)
--- NOTE | 2018-05-30 01:50 | DIS ---
DATE OF ADMISSION: 05/26/2018 DATE OF DISCHARGE: 05/29/2018 DISCHARGE DISPOSITION: To home. PRIMARY DISCHARGE DIAGNOSES: Proteus bacteremia; recent laminectomy with reexploration of the area a nd washout done on 05/28/2018; elevated liver function tests, secondary to sepsis; chronic anemia. PROCEDURES DONE DURING HOSPITALIZATION: Patient had reopening of left L5-S1 hemilaminotomy, diskecto my, wound with exploration, and intraoperative cultures and washout done on 05/27/[address] Bentley. Ultrasound venous Doppler of lower extremities showed no evidence of DVT. CT of the abdomen and pe lvis with contrast done showed evidence of fluid and air collection of the posterior paraspinous veena on indicative of abscess. Alternatively, seroma or hematoma could be a consideration. Chest x-ray d one showed no acute infiltrate. Blood cultures x2 grew Proteus mirabilis, sensitive to all antibioti cs. The fluid from the operative site is also growing Proteus mirabilis. Had a white count of 12 on the day of admission with sed rate of 33. Discharge white count 10, H and H is 11 and 35. Initiall y, AST 138; discharge AST 22. Initial ALT 245; discharge ALT 72. Total bilirubin 0.6. CRP was 9.39 . UA was negative for any infection. DISCHARGE MEDICATIONS: Ciprofloxacin 500 mg p.o. twice daily for a total of [address] Mckenzie' cooper dvice, zonisamide 100 mg p.o. twice daily, multivitamin 1 tab once daily, magnesium oxide 500 mg p.o. daily, Synthroid 125 mcg p.o. daily, vitamin D3 5000 units p.o. q.a.m. ALLERGIES: SULFA. INPATIENT CONSULTS: Dr. Bentley for Neurosurgery and Dr. Mckenzie for Infectious Disease. BRIEF COURSE DURING HOSPITALIZATION: Patient initially was sent to emergency room, as she grew Prote us mirabilis in her blood cultures. She has had laminectomy done on 05/06/[address] Bentley. The p atient has been having off and on fever for the last week and a half now and had cultures drawn, whic h grew Proteus in Dr. Bentley's office. In view of this and patient having lower back pain with macer ation of the wound operated site, the patient was admitted to the hospital. She has had abdominal an d pelvic CAT scan done, which was suspicious for possible epidural abscess versus seroma versus hemat brandy. She was taken to OR by Dr. Bentley on the second and has had washout of the area done, which rev ealed hematoma with not much of purulent material. Her cultures from the wound have also grown Prote us along with 2 sets of blood cultures have grown Proteus mirabilis with a very good sensitivity prof ile with no resistance to any antibiotic. Prior to discharge, she is ambulating and eating well. Cathy black needs to continue ciprofloxacin 500 mg twice daily for a total of 40 days. Weekly CBC, CMP, CRP ne eds to be done and needs to be faxed to Dr. Mckenzie' office. She has been cleared for discharge by Dr. Bentley. Please see a [id number] documentation on [facility] for the day of discharge.
== END 2018-05-29 17:55 | disposition home or self-care (01) | DRG 856 ==
LOC: ERS 20:16 → SURG A 23:06
PROVIDERS: ADMIT Hospitalist; ATTEND Hospitalist
PROC: 009U0ZZ Drainage of Spinal Canal, Open Approach (ICD-10-PCS; principal; 2018-05-27)
DX: T81.40XA Infection following a procedure, unspecified, initial encounter (principal); A41.9 Sepsis, unspecified organism; M46.26 Osteomyelitis of vertebra, lumbar region; E03.9 Hypothyroidism, unspecified; Y83.9 Surgical procedure, unspecified as the cause of abnormal reaction of the patient, or of later complication, without mention of misadventure at the time of the procedure; D64.9 Anemia, unspecified
CPT/HCPCS: 36415; 71045; 74178; 80048; 80053; 80202; 81003; 83605; 85025; 85652; 86140; 87040; 87070; 87077; 87086; 87149; 87186; 87205; 93970; 96361; 96365; 96366; 96375; A4216; J0131; J1100; J1885; J1956; J2001; J2185; J2270; J2405; J2550; J2704; J2765; J3010; J3370; J3490; J7050

== ENCOUNTER 2022-02-28 02:53 | Emergency (ER) | payer BC, OTHER ==
[2022-02-28] MEDS ORDERED: Morphine 4 MG/ML VIAL ONE ×3 (03:20→05:47)
[2022-02-28] MEDS ORDERED: Ketorolac Tromethamine 30 MG/ML VIAL ONE (03:20)
[2022-02-28] MEDS ORDERED: Ondansetron PF 4 MG/2 ML Vial ONE (03:20)
[2022-02-28 03:30] LABS: #Basophils 0.1 thou/uL (0.0-0.2); #Eosinphils 0.2 thou/uL (0.0-0.7); #Lymphocytes 3.3 thou/uL (1.20-3.40); #Neutrophils 6.2 thou/uL (1.40-6.50); %Basophils 0.5 % (0.0-1.0); %Eosinophils 2.1 % (0.0-10.0); %Lymphocytes 30.8 % (21.0-51.0); %Monocytes 9.5 % (0.0-10.0); %Neutrophils 57.1 % (42.0-75.0); Hemoglobin 15.9 g/dL (12.0-16.0); Mean Corpuscular HGB CONC 33.8 g/dL (32.0-36.0); Mean Corpuscular Hemoglobin 31.6 pg (27.0-31.0); Mean Corpuscular Volume 93.3 fL (78.0-98.0); Mean Platelet Volume 8.2 fL (7.4-10.4); Platelet Count 292 thou/uL (130-400); RBC Distribution Width 11.6 % (11.5-14.5); Red Blood Cell (RBC) Count 5.02 mill/uL (4.20-5.40); White Blood Cell (WBC) Count 10.8 thou/uL (4.8-10.8)
[2022-02-28 03:39] LABS: BHCG - Serum Negative (NEGATIVE); Pregs Control Background? CLEAR/WHITE (CLR/WHITE); Pregs Control Bar Appear? YES (CONTROL BAR)
[2022-02-28 03:45] LABS: ALT (SGPT) 26 U/L (8-55); AST (SGOT) 18 U/L (5-34); Albumin 4.6 g/dL (3.5-5.0); Alkaline Phosphatase 95 U/L (40-110); Anion Gap 15 mmol/L (10-20); BUN (Urea Nitrogen) 26 mg/dL (9.8-20.1); Bilirubin, Total 0.6 mg/dL (0.2-1.2); Calc. Creatinine Clearance 0 mL/min (70-130); Calcium 10.3 mg/dL (7.8-10.44); Carbon Dioxide 25 mmol/L (22-29); Chloride 105 mmol/L (98-107); Estimated GFR 63; Globulin 3.1 g/dL (2.4-3.5); Glucose 111 mg/dL (70-105); Lipase 45 U/L (8-78); Potassium 3.6 mmol/L (3.5-5.1); Protein, Total 7.7 g/dL (6.0-8.3); Sodium 141 mmol/L (136-145)
[2022-02-28 05:02] LABS: Bacteria/HPF None Seen HPF (None Seen); Bilirubin Negative (Negative); Blood, Urine 1+ (Negative); Clarity Extra Turbid (Clear); Glucose, Urine (Dipstick) Normal (Negative); Ketone, Urine Negative (Negative); Leukocyte 25 Leu/uL (Negative); Nitrite Negative (Negative); Protein, Urine (Dipstick) Negative (Neg-Trace); RBC/HPF 21-50 HPF (0-3); Specific Gravity, Urine 1.015 (1.002-1.036); Squamous Epithelial 0-3 HPF (0-3); Urobilinogen Normal mg/dL (Less than 2); WBC/HPF 0-3 HPF (0-3); pH, Urine 7.5 (5.0-9.0)
[2022-02-28] MEDS ORDERED: HYDROcodone/Acetaminophen 5/325 mg Tablet ONE (05:47)
== END 2022-02-28 07:09 | disposition home or self-care (01) ==
LOC: ERS 02:53
DX: N13.2 Hydronephrosis with renal and ureteral calculous obstruction (principal); E03.9 Hypothyroidism, unspecified
CPT/HCPCS: 74176; 80053; 81003; 81015; 83690; 84703; 85025; J1885; J2270; J2405

== ENCOUNTER 2022-02-28 09:20 | Day surgery (SDC) | payer BC ==
[2022-02-28] MEDS ORDERED: Fentanyl 100 MCG/2 ML VIAL ONE ×2 (10:44→11:56)
[2022-02-28] MEDS ORDERED: Levofloxacin 500 mg/D5W 100 ml Premix Bag ONE ×2 (11:11→13:18)
[2022-02-28] MEDS ORDERED: Midazolam HCl 2 mg/2 ml Vial ONE (11:56)
[2022-02-28] MEDS ORDERED: Propofol 500 MG/50 ML VIAL ONE (11:57)
[2022-02-28] MEDS ORDERED: SUGAMMADEX SODIUM 200 MG/2 ML VIAL ONE (11:57)
[2022-02-28] MEDS ORDERED: Dexmedetomidine 200 MCG/2 ML VIAL ONE (11:57)
[2022-02-28] MEDS ORDERED: Propofol 1,000 MG/100 ML VIAL IV ONE (11:57)
[2022-02-28] MEDS ORDERED: Ondansetron PF 4 MG/2 ML Vial ONE (12:06)
[2022-02-28] MEDS ORDERED: Famotidine/PF 20 mg/2ml Vial ONE (13:03)
[2022-02-28] MEDS ORDERED: Iopamidol 30 ML ONE (13:05)
[2022-02-28] MEDS ORDERED: Iopamidol 15 ML ONE (14:32)
[2022-02-28] MEDS ORDERED: Phenazopyridine HCl 100 MG TAB ONE (14:47)
[2022-02-28] MEDS ORDERED: Oxybutynin 5 MG TAB ONE (14:48)
== END 2022-02-28 16:25 | disposition home or self-care (01) ==
LOC: SDC 09:20
PROVIDERS: ATTEND Urology
PROC: 0T768DZ Dilation of Right Ureter with Intraluminal Device, Via Natural or Artificial Opening Endoscopic (ICD-10-PCS; principal; 2022-02-28)
PROC: 0TC68ZZ Extirpation of Matter from Right Ureter, Via Natural or Artificial Opening Endoscopic (ICD-10-PCS; principal; 2022-02-28)
DX: N13.2 Hydronephrosis with renal and ureteral calculous obstruction (principal); N28.1 Cyst of kidney, acquired; Q62.5 Duplication of ureter; Z88.2 Allergy status to sulfonamides; E03.9 Hypothyroidism, unspecified
CPT/HCPCS: 74176; 74420; 80053; 81003; 81015; 82365; 83690; 84703; 85025; 87811; 88300; 96374; 96375; 96376; C2617; J1885; J1956; J2250; J2270; J2405; J2704; J3010; Q9967; S0028

== ENCOUNTER 2023-06-14 09:05 | Outpatient (CLI) | payer OTHER | END 2023-06-14 09:06 | disposition home or self-care (01) | LOC: BICULT 09:05 | PROVIDERS: ATTEND Urology | DX: N28.1 Cyst of kidney, acquired (principal); N20.1 Calculus of ureter; Q62.8 Other congenital malformations of ureter; Q62.5 Duplication of ureter | CPT/HCPCS: 76770 ==

== ENCOUNTER 2024-06-27 20:59 | Inpatient (IN) | payer OTHER ==
[2024-06-27 22:00] VITALS: BMI 29.2
[2024-06-27] MEDS ORDERED: Ondansetron PF 4 MG/2 ML Vial IVP PRN (22:14)
[2024-06-27 22:48] LABS: #Basophils Less than 0.03 10x3/uL (0.0-0.2); %Basophils 0.3 % (0.0-1.0); %Eosinophils 0.8 % (0.0-10.0); %Monocytes 5.5 % (0.0-10.0); %Neutrophils 84.3 % (42.0-75.0); Hematocrit 41.3 % (36.0-47.0); Hemoglobin 13.6 g/dL (12.0-16.0); Mean Corpuscular HGB CONC 32.9 g/dL (32.0-36.0); Mean Corpuscular Hemoglobin 31.2 pg (27.0-31.0); Mean Corpuscular Volume 94.7 fL (78.0-98.0); Mean Platelet Volume 10.2 fL (7.4-10.4); Platelet Count 201 10x3/uL (130-400); RBC Distribution Width 12.6 % (11.5-14.5); Red Blood Cell (RBC) Count 4.36 mill/uL (4.20-5.40)
[2024-06-27 23:02] LABS: ALT (SGPT) 27 U/L (8-55); AST (SGOT) 23 U/L (5-34); Albumin 3.2 g/dL (3.5-5.0); Alkaline Phosphatase 63 U/L (40-110); Anion Gap 10 mmol/L (10-20); BUN (Urea Nitrogen) 12 mg/dL (9.8-20.1); Bilirubin, Total 0.5 mg/dL (0.2-1.2); Calc. Creatinine Clearance 97 mL/min (70-130); Carbon Dioxide 21 mmol/L (22-29); Chloride 114 mmol/L (98-107); Estimated GFR 86; Globulin 2.4 g/dL (2.4-3.5); Glucose 98 mg/dL (70-105); Lipase 12 U/L (8-78); Magnesium 1.8 mg/dL (1.6-2.6); Potassium 3.3 mmol/L (3.5-5.1); Protein, Total 5.6 g/dL (6.0-8.3); Sodium 142 mmol/L (136-145)
[2024-06-28] MEDS: Ondansetron ODT 4 MG TAB PO PRN (00:37)
[2024-06-28] MEDS: Morphine 2 MG/ML VIAL SLOW IVP PRN (00:38)
[2024-06-28] MEDS: Pantoprazole 40 MG VIAL IVP SCH ×2 (00:38→08:46)
[2024-06-28] MEDS: Lactated Ringer's 1,000 ML IV SCH (00:39)
[2024-06-28] MEDS: Potassium Chloride 20 MEQ in Premix 1 BAG IVPB SCH (00:39)
[2024-06-28] MEDS: Levothyroxine Sodium 25 MCG TAB PO SCH (05:57)
[2024-06-28] MEDS: Levothyroxine Sodium 112 MCG TAB PO SCH (05:57)
[2024-06-28] MEDS: FLU (Fluarix Triv) TS24-25(6MOS UP)/PF 45 MCG/0.5 ML Syringe IM ONE (08:46)
[2024-06-28 10:21] LABS: #Basophils Less than 0.03 10x3/uL (0.0-0.2); %Basophils 0.2 % (0.0-1.0); %Eosinophils 2.2 % (0.0-10.0); %Lymphocytes 29.1 % (21.0-51.0); %Neutrophils 59.1 % (42.0-75.0); Hematocrit 40.2 % (36.0-47.0); Mean Corpuscular HGB CONC 32.3 g/dL (32.0-36.0); Mean Corpuscular Hemoglobin 30.7 pg (27.0-31.0); Mean Corpuscular Volume 94.8 fL (78.0-98.0); Platelet Count 191 10x3/uL (130-400); RBC Distribution Width 12.5 % (11.5-14.5); Red Blood Cell (RBC) Count 4.24 mill/uL (4.20-5.40)
[2024-06-28 10:45] LABS: ALT (SGPT) 29 U/L (8-55); AST (SGOT) 24 U/L (5-34); Albumin 3.1 g/dL (3.5-5.0); Alkaline Phosphatase 64 U/L (40-110); Anion Gap 11 mmol/L (10-20); BUN (Urea Nitrogen) 9 mg/dL (9.8-20.1); Bilirubin, Total 0.8 mg/dL (0.2-1.2); Calc. Creatinine Clearance 100 mL/min (70-130); Calcium 8.2 mg/dL (7.8-10.44); Carbon Dioxide 19 mmol/L (22-29); Chloride 112 mmol/L (98-107); Estimated GFR 90; Globulin 2.5 g/dL (2.4-3.5); Glucose 87 mg/dL (70-105); Potassium 3.6 mmol/L (3.5-5.1); Protein, Total 5.6 g/dL (6.0-8.3); Sodium 138 mmol/L (136-145)
[2024-06-28] MEDS ORDERED: Metoclopramide HCl 10 MG (2 mL) VIAL IVP PRN (11:36)
[2024-06-28] MEDS: Acetaminophen 325 MG TAB PO PRN (12:50)
[2024-06-28] MEDS: Zonisamide 100 MG CAP PO SCH (21:29)
[2024-06-29 05:49] LABS: #Basophils Less than 0.03 10x3/uL (0.0-0.2); %Basophils 0.5 % (0.0-1.0); %Eosinophils 4.4 % (0.0-10.0); %Monocytes 13.8 % (0.0-10.0); %Neutrophils 42.8 % (42.0-75.0); Hematocrit 38.9 % (36.0-47.0); Mean Corpuscular HGB CONC 33.4 g/dL (32.0-36.0); Mean Corpuscular Hemoglobin 30.9 pg (27.0-31.0); Mean Corpuscular Volume 92.4 fL (78.0-98.0); Mean Platelet Volume 10.3 fL (7.4-10.4); Platelet Count 206 10x3/uL (130-400); RBC Distribution Width 12.3 % (11.5-14.5); Red Blood Cell (RBC) Count 4.21 mill/uL (4.20-5.40)
[2024-06-29 06:07] LABS: ALT (SGPT) 28 U/L (8-55); AST (SGOT) 27 U/L (5-34); Alkaline Phosphatase 65 U/L (40-110); Anion Gap 10 mmol/L (10-20); BUN (Urea Nitrogen) 6 mg/dL (9.8-20.1); Bilirubin, Total 0.5 mg/dL (0.2-1.2); Calc. Creatinine Clearance 103 mL/min (70-130); Calcium 8.3 mg/dL (7.8-10.44); Carbon Dioxide 22 mmol/L (22-29); Chloride 112 mmol/L (98-107); Estimated GFR 93; Globulin 2.6 g/dL (2.4-3.5); Glucose 88 mg/dL (70-105); Potassium 3.8 mmol/L (3.5-5.1); Protein, Total 5.6 g/dL (6.0-8.3); Sodium 140 mmol/L (136-145)
[2024-06-29 08:01] VITALS: TEMP 98.1
[2024-06-29 14:55] VITALS: BP 147/73
== END 2024-06-29 15:06 | disposition home or self-care (01) | DRG 641 ==
LOC: T4-A 21:32 → OBSVTOIN 06-29 09:08
PROVIDERS: ADMIT Internal Medicine; ATTEND Internal Medicine
DX: E86.0 Dehydration (principal); E87.6 Hypokalemia; E03.9 Hypothyroidism, unspecified; K83.8 Other specified diseases of biliary tract; R11.2 Nausea with vomiting, unspecified; R19.7 Diarrhea, unspecified; Z88.2 Allergy status to sulfonamides; Z88.8 Allergy status to other drugs, medicaments and biological substances; Z90.49 Acquired absence of other specified parts of digestive tract
CPT/HCPCS: 36415; 74181; 76376; 80053; 83690; 83735; 85025; 96374; 96375; 96376; G0378; J2272; J2470; J3480; J7120; Q0162

== ENCOUNTER 2024-08-10 08:02 | Outpatient (CLI) | payer OTHER | END 2024-08-10 08:03 | disposition home or self-care (01) | LOC: NM 08:02 | PROVIDERS: ATTEND Internal Medicine Gastroenterology | DX: R10.13 Epigastric pain (principal); R11.2 Nausea with vomiting, unspecified | CPT/HCPCS: 78264; A9541 ==

== ENCOUNTER 2025-05-10 11:34 | Emergency (ER) | payer OTHER ==
[2025-05-10] MEDS ORDERED: Prochlorperazine 10 MG/2 ML VIAL ONE (12:05)
[2025-05-10] MEDS ORDERED: diphenhydrAMINE 50 MG/ML VIAL ONE (12:05)
[2025-05-10] MEDS ORDERED: Magnesium 2 GM/50 ML BAG (IN WATER) ONE (12:05)
[2025-05-10 12:08] LABS: #Basophils 0.06 10x3/uL (0.0-0.2); #Eosinophils 0.25 10x3/uL (0.0-0.7); #Monocytes 0.64 10x3/uL (0.11-0.59); #Neutrophils 4.26 10x3/uL (1.40-6.50); %Basophils 0.8 % (0.0-1.0); %Eosinophils 3.2 % (0.0-10.0); %Lymphocytes 33.4 % (21.0-51.0); %Monocytes 8.2 % (0.0-10.0); %Neutrophils 54.1 % (42.0-75.0); Hematocrit 46.6 % (36.0-47.0); Hemoglobin 15.4 g/dL (12.0-16.0); Mean Corpuscular Hemoglobin 30.5 pg (27.0-31.0); Mean Corpuscular Volume 92.3 fL (78.0-98.0); Platelet Count 255 10x3/uL (130-400); Red Blood Cell (RBC) Count 5.05 mill/uL (4.20-5.40); White Blood Cell (WBC) Count 7.85 10x3/uL (4.8-10.8)
[2025-05-10 12:25] LABS: ALT (SGPT) 33 U/L (Less than 34); AST (SGOT) 29 U/L (11-34); Albumin 4.0 g/dL (3.1-4.5); Alkaline Phosphatase 81 U/L (40-110); Anion Gap 16 mmol/L (10-20); BUN (Urea Nitrogen) 10 mg/dL (9.8-20.1); Bilirubin, Total 0.8 mg/dL (0.3-1.2); Calc. Creatinine Clearance 0 mL/min (70-130); Calcium 9.1 mg/dL (7.8-10.44); Carbon Dioxide 24 mmol/L (22-29); Chloride 105 mmol/L (98-107); Globulin 3.0 g/dL (2.4-3.5); Glucose 95 mg/dL (70-105); INR-International Normal Ratio 0.9; PTT 26.0 sec (22.9-36.1); Potassium 2.9 mmol/L (3.5-5.1); Prothrombin Time 12.5 sec (12.0-14.7); Sodium 142 mmol/L (136-145)
[2025-05-10] MEDS ORDERED: Ketorolac Tromethamine 30 MG (1 mL) VIAL ONE (12:50)
[2025-05-10] MEDS ORDERED: Iopamidol-370 76% 500 ML MDV (1 ML CHARGE) ONE (13:06)
[2025-05-10] MEDS ORDERED: Ketamine In 0.9 % NaCl 50 MG/5 ML SYRINGE ONE (13:55)
[2025-05-10 17:27] LABS: Magnesium 2.0 mg/dL (1.6-2.6)
== END 2025-05-10 16:03 | disposition home or self-care (01) ==
LOC: ERS 11:34
DX: G43.909 Migraine, unspecified, not intractable, without status migrainosus (principal); E87.6 Hypokalemia
CPT/HCPCS: 36416; 70450; 70496; 70498; 71045; 80053; 83735; 84484; 85025; 85610; 85730; 93005; 94760; 96365; 96366; 96368; 96375; 96376; J0780; J1200; J1885; J2919; J3475; J3490; Q9967